=== PATIENT | male | born 1960 | race Caucasian/White ===

== ENCOUNTER 2016-10-26 08:11 | Day surgery (SDC) | payer OTHER ==
[2016-10-25 11:40] VITALS: BMI 21.4
[2016-10-26] VITALS (15 sets, daily range): BP systolic 93–119; BP diastolic 62–79; PULSE 66–83; RESP 9–20; Ht 170.2 cm; Wt 73.0 kg
[~2016-10-26] VITALS: Ht 170.2 cm; Wt 73.0 kg
[~2016-10-26 08:11] MED LIST: CEFAZOLIN 2 GM/50 ML (PMX) 50 ML IVPB ONE; POLYMYXIN/BACITRACIN 1L IRRIG IRR ONE; SEVOFLURANE 15 MIN ONE
[2016-10-26] MEDS ORDERED: GABA-526 PO (08:50)
[2016-10-26] MEDS ORDERED: MEPERIDINE 100 MG INJ ONE (09:21)
[2016-10-26] MEDS ORDERED: PROPOFOL 20 ML ONE (09:21)
[2016-10-26] MEDS ORDERED: GLYCOPYRROLATE 0.4 MG INJ ONE ×2 (09:21→09:53)
[2016-10-26] MEDS ORDERED: LIDOCAINE 2% (SDV) 5 ML INJ ONE (09:21)
[2016-10-26] MEDS ORDERED: NEOSTIGMINE 3 MG/3 ML SYRINGE ONE ×2 (09:21→09:53)
[2016-10-26] MEDS ORDERED: SUCCINYLCHOLINE CHLORIDE 100 MG/5 ML SYG IV ONE (09:21)
[2016-10-26] MEDS ORDERED: ROCURONIUM 50 MG INJ ONE (09:21)
[2016-10-26] MEDS ORDERED: BUPIVACAINE 0.5% (SDV) 30 ML INJ INJ ONE (09:30)
--- NOTE | 2016-10-26 09:31 | HPN ---
Date/Time of Note Date/Time of Note DATE: 10/26/16 TIME: 09:31 Interval H&P Admission Note Pt. seen H&P reviewed: No system changes JAMAL VARELA DPM Oct 26, 2016 09:31
[2016-10-26] MEDS ORDERED: CEFAZOLIN 1 GM INJ ONE (10:04)
[2016-10-26] MEDS ORDERED: ATROPINE 1 MG/10 ML SYRINGE ONE (10:04)
[2016-10-26] MEDS ORDERED: BUPIVACAINE 0.5% (SDV) 30 ML INJ ONE (10:12)
[2016-10-26] MEDS ORDERED: EPHEDrine SULFATE 50 MG/5 ML SYG ONE (10:44)
[2016-10-26] MEDS ORDERED: FENTAnyl 50 MCG/ML VIAL ONE (11:15)
[2016-10-26] MEDS: FENTAnyl 25 MCG IV PRN ×3 (11:20→11:41)
[2016-10-26] MEDS ORDERED: MEPERIDINE 25 MG INJ ONE (11:20)
[2016-10-26] MEDS ORDERED: POLYMYXIN/BACITRACIN 1L IRRIG ONE (11:34)
[2016-10-26] MEDS ORDERED: ONDANSETRON 4 MG INJ IV PRN (12:00)
[2016-10-26] MEDS ORDERED: OXYCODONE/ACETAMINOPHEN (5/325) 1 TAB PO PRN (12:00)
[2016-10-26] MEDS ORDERED: HYDROmorphONE 1 MG/ML SYG IV SCH (12:00)
[2016-10-26] MEDS ORDERED: ACETAMINOPHEN PO PRN (12:00)
[2016-10-26] MEDS ORDERED: DIPHENHYDRAMINE 25 MG INJ IV PRN (12:00)
[2016-10-26] MEDS ORDERED: OXYCODONE PO PRN (12:00)
[2016-10-26] MEDS ORDERED: MEPERIDINE 25 MG INJ IV PRN (12:00)
[2016-10-26] MEDS ORDERED: FENTANYL 50 MCG IV PRN (12:00)
[2016-10-26] MEDS ORDERED: OXYCODONE/ACETAMINOPHEN (5/325) TAB PO SCH (12:00)
--- NOTE | 2016-10-26 22:19 | RADRPT ---
PROCEDURE: Intraoperative imaging of the right foot with fluoroscopy. CLINICAL INDICATION: Right foot pain. Intraoperative. TECHNIQUE: 2 images of the right foot were obtained in the operating room with an image intensifie r. No radiologist was in attendance. Fluoroscopy time is 0.1 minutes. COMPARISON: No prior study is available for comparison. FINDINGS: Images demonstrate placement of a prosthetic joint at the distal first metatarsal. IMPRESSION: 1. Intraoperative imaging of the right foot. RPTAT: QQ .Iam Barrett MD, Date Time Electronically viewed and signed by .Iam Barrett MD, on 10/26/2016 22:19 .R/
--- NOTE | 2016-10-26 22:38 | RADRPT ---
PROCEDURE: XR Right Foot. CLINICAL INDICATION: Right foot pain. Postop. TECHNIQUE: 3 views. Frontal, lateral, and oblique. COMPARISON: None. FINDINGS: There is a prosthesis at the site of the first metatarsal distal articular surface. This appears sa tisfactory. Articular surfaces are otherwise intact. Soft tissues are grossly normal. There is no lytic or blastic lesion. There is no fracture or dislocation. IMPRESSION: 1. Satisfactory postoperative appearance of the right foot. RPTAT: QQ .Iam Barrett MD, MD Date Time Electronically viewed and signed by .Iam Barrett MD, on 10/26/2016 22:38 .R/
== END 2016-10-26 13:20 | disposition home or self-care (01) ==
LOC: SDS 08:11
PROVIDERS: ATTEND Podiatrist Foot & Ankle Surgery
DX: M20.21 Hallux rigidus, right foot (principal); M19.071 Primary osteoarthritis, right ankle and foot; Z87.891 Personal history of nicotine dependence
CPT/HCPCS: 28291; 73630; 88304; 88311; C1776; J0461; J0690; J2175; J2710; J3010; Z7512; Z7610; J7999